=== PATIENT | female | born 2000 | race Caucasian/White ===

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

== ENCOUNTER 2019-04-16 12:21 | Observation (INO) | payer MEDICAID ==
[~2019-04-16] VITALS: Ht 165.1 cm; Wt 72.6 kg
[~2019-04-16 12:21] MED LIST changes: -FOLI0.4T2 MT
[2019-04-16 13:35] LABS: CLARITY URINE CLOUDY (CLEAR); COLOR URINE YELLOW (YELLOW); KETONES URINE NEGATIVE (NEGATIVE); LEUKOCYTE ESTERASE URINE 2+ (NEGATIVE); NITRITE URINE NEGATIVE (NEGATIVE); OCCULT BLOOD URINE NEGATIVE (NEGATIVE); PROTEIN URINE NEGATIVE (NEGATIVE); SPECIFIC GRAVITY URINE 1.017 (1.005-1.030)
[2019-04-16] MEDS ORDERED: LACTATED RINGERS 1,000 ML IV SCH (13:45)
[2019-04-16] MEDS ORDERED: CEFAZOLIN 2,000 MG in DEXT 5% WATER 100 ML IV ONE (14:15)
== END 2019-04-16 14:55 | disposition home or self-care (01) ==
LOC: 8 EST LDRP 12:21
PROVIDERS: ADMIT Obstetrics & Gynecology; ATTEND Obstetrics & Gynecology
DX: O23.43 Unspecified infection of urinary tract in pregnancy, third trimester (principal); Z3A.39 39 weeks gestation of pregnancy
CPT/HCPCS: 81003; 87086; 96365; 99281; G0378; J0690; J7060; 96360

== ENCOUNTER 2021-07-13 10:47 | Observation (INO) | payer MEDICAID, OTHER ==
[~2021-07-13] VITALS: Ht 170.2 cm; Wt 75.7 kg
== END 2021-07-13 15:00 | disposition home or self-care (01) ==
LOC: 8 EST LDRP 10:47
PROVIDERS: ADMIT Obstetrics & Gynecology; ATTEND Obstetrics & Gynecology
DX: O36.8130 Decreased fetal movements, third trimester, not applicable or unspecified (principal); Z3A.37 37 weeks gestation of pregnancy
CPT/HCPCS: 59025; 76805; 76818; G0378; 99281